=== PATIENT | male | born 1930 | race Caucasian/White ===

== ENCOUNTER 2017-07-12 15:21 | Emergency (ER) | payer OTHER ==
[~2017-07-12] VITALS: Ht 172.7 cm; Wt 87.2 kg
[2017-07-12 15:59] LABS: ADD MIUA? NO; BILIRUBIN NEGATIVE; BLOOD NEGATIVE; COLOR STRAW ((YELLOW)); GLUCOSE (STRIP) NEGATIVE; KETONES NEGATIVE; LEUKOCYTES NEGATIVE; NITRITE NEGATIVE; PROTEIN (STRIP) NEGATIVE; SPECIFIC GRAVITY 1.006 (1.000-1.030); UROBILINOGEN 0.2 MG/DL (0.2-1.0)
[2017-07-12 16:00] LABS: EOSINOPHIL (%) 0.4 % (0-5); EOSINOPHIL COUNT 0.1 K/uL (0-0.3); HEMATOCRIT 43.4 % (38.0-50.0); IMMATURE GRANULOCYTE (%) 0.8 % (0.0-0.7); IMMATURE GRANULOCYTE COUNT 0.1 K/uL; INSTRUMENT ABS NEUTROPHIL CT 8.9 K/uL; LYMPHOCYTE COUNT 3.2 K/uL (1.0-2.8); MCH 26.5 PG (29.0-34.0); MCHC 32.7 G/DL (30.0-36.0); MEAN PLAT.VOLUME 8.7 uM^3 (9.0-12.4); MONOCYTE (%) 5.5 % (3-12); MONOCYTE COUNT 0.7 K/uL (0-0.8); NEUTROPHIL (%) 68.5 % (45-76); NEUTROPHIL COUNT 8.9 K/uL (1.8-6.4); PLATELET COUNT 207 K/uL (156-360); RBC DIS.WIDTH-CV 13.9 % (11.8-14.6); RBC DIS.WIDTH-SD 40.2 % (39-53); RED BLOOD COUNT 5.36 M/uL (4.00-5.50)
[2017-07-12 16:01] LABS: UCUL ADDED? NO
[2017-07-12 16:06] LABS: PROTHROMBIN TIME 10.8 SEC (10.2-12.9)
[2017-07-12 16:09] LABS: PTT 30.1 SEC (25-37)
[2017-07-12 16:13] LABS: CHLORIDE 107 mEq/L (99-109); POTASSIUM 4.1 mEq/L (3.7-5.4); SODIUM 144 mEq/L (136-147)
[2017-07-12 16:15] LABS: GLUCOSE 59 mg/dL (70-99)
[2017-07-12 16:16] LABS: ANION GAP 14 MEQ/L (2-14)
[2017-07-12 16:17] LABS: TOTAL BILIRUBIN 0.4 mg/dL (0.0-1.0)
[2017-07-12 16:18] LABS: ALKALINE PHOSPHATASE 56 IU/L (3-129)
[2017-07-12 16:20] LABS: DIRECT BILIRUBIN 0.2 mg/dL (0.0-0.3); UREA NITROGEN (BUN) 29 mg/dL (9-23)
[2017-07-12 16:21] LABS: GFR ESTIMATE (CALCULATED) 38 mL/min/; TROP-I INTERPRETATION NEGATIVE; TROPONIN-I 0.06 ng/mL (0.0-0.30)
[2017-07-12 16:22] LABS: LIPASE 51 U/L (1.0-51.0)
[2017-07-12 16:29] LABS: POINT-OF-CARE METER ID UU14100415
[2017-07-12 16:29] LABS: POINT-OF-CARE METER ID UU14100415
[2017-07-12 17:59] LABS: POINT-OF-CARE METER ID UU14100415
[2017-07-12 19:57] LABS: POINT-OF-CARE METER ID UU14100415
[2017-07-12 20:09] VITALS: BP 186/60
== END 2017-07-12 20:16 | disposition home or self-care (01) ==
LOC: EME 15:21
PROVIDERS: Emergency Medicine
DX: E11.649 Type 2 diabetes mellitus with hypoglycemia without coma (principal); I10 Essential (primary) hypertension; Z87.891 Personal history of nicotine dependence
CPT/HCPCS: 71010; 80048; 80076; 81003; 82948; 83605; 83690; 83880; 84484; 85025; 85610; 85730; 93005; 99281; 99284; J7030

== ENCOUNTER 2017-08-23 18:54 | Emergency (ER) | payer OTHER ==
[~2017-08-23] VITALS: Ht 172.7 cm; Wt 86.2 kg
[2017-08-23 19:58] LABS: HEMATOCRIT 44.5 % (38.0-50.0); MCH 27.5 PG (29.0-34.0); MCHC 32.8 G/DL (30.0-36.0); MCV 83.8 FL (86-99); MEAN PLAT.VOLUME 11.8 uM^3 (9.0-12.4); PLATELET COUNT 58 K/uL (156-360); RBC DIS.WIDTH-SD 42.4 % (39-53); RED BLOOD COUNT 5.31 M/uL (4.00-5.50)
[2017-08-23 20:07] LABS: CHLORIDE 106 mEq/L (99-109); POTASSIUM 4.8 mEq/L (3.7-5.4); SODIUM 146 mEq/L (136-147)
[2017-08-23 20:10] LABS: GLUCOSE 124 mg/dL (70-99)
[2017-08-23 20:11] LABS: ANION GAP 12 MEQ/L (2-14)
[2017-08-23 20:12] LABS: TOTAL BILIRUBIN 0.5 mg/dL (0.0-1.0)
[2017-08-23 20:13] LABS: ALKALINE PHOSPHATASE 51 IU/L (3-129); GFR ESTIMATE (CALCULATED) 44 mL/min/
[2017-08-23 20:14] LABS: UREA NITROGEN (BUN) 29 mg/dL (9-23)
[2017-08-23 21:14] LABS: ADD MIUA? NO; BILIRUBIN NEGATIVE; BLOOD NEGATIVE; COLOR COLORLESS ((YELLOW)); GLUCOSE (STRIP) NEGATIVE; KETONES NEGATIVE; LEUKOCYTES NEGATIVE; NITRITE NEGATIVE; PROTEIN (STRIP) NEGATIVE; SPECIFIC GRAVITY 1.008 (1.000-1.030); UCUL ADDED? NO; UROBILINOGEN 0.2 MG/DL (0.2-1.0)
[2017-08-23 22:10] VITALS: BP 172/66
== END 2017-08-23 22:15 | disposition home or self-care (01) ==
LOC: EME 18:54
PROVIDERS: Emergency Medicine
DX: R41.82 Altered mental status, unspecified (principal); E11.9 Type 2 diabetes mellitus without complications; I10 Essential (primary) hypertension; Z87.891 Personal history of nicotine dependence
CPT/HCPCS: 70450; 71010; 80053; 81003; 84443; 85027; 93005; 99281; 99285; J7040

== ENCOUNTER 2017-09-10 16:02 | Emergency (ER) | payer OTHER ==
[~2017-09-10] VITALS: Ht 172.7 cm; Wt 85.3 kg
[2017-09-10 16:55] LABS: EOSINOPHIL (%) 0.4 % (0-5); HEMATOCRIT 44.5 % (38.0-50.0); IMMATURE GRANULOCYTE (%) 0.6 % (0.0-0.7); IMMATURE GRANULOCYTE COUNT 0.1 K/uL; INSTRUMENT ABS NEUTROPHIL CT 9.2 K/uL; LYMPHOCYTE COUNT 1.3 K/uL (1.0-2.8); MCH 27.5 PG (29.0-34.0); MCHC 32.8 G/DL (30.0-36.0); MCV 83.8 FL (86-99); MONOCYTE (%) 4.3 % (3-12); MONOCYTE COUNT 0.5 K/uL (0-0.8); NEUTROPHIL (%) 82.8 % (45-76); NEUTROPHIL COUNT 9.2 K/uL (1.8-6.4); RBC DIS.WIDTH-CV 13.8 % (11.8-14.6); RBC DIS.WIDTH-SD 42.2 % (39-53); RED BLOOD COUNT 5.31 M/uL (4.00-5.50); WHITE BLOOD COUNT 11.1 K/uL (4.1-10.2)
[2017-09-10 17:01] LABS: PLATELET COUNT 189 K/uL (156-360)
[2017-09-10 17:03] LABS: CHLORIDE 108 mEq/L (99-109); POTASSIUM 4.2 mEq/L (3.7-5.4); SODIUM 142 mEq/L (136-147)
[2017-09-10 17:05] LABS: GLUCOSE 66 mg/dL (70-99)
[2017-09-10 17:06] LABS: ANION GAP 8 MEQ/L (2-14)
[2017-09-10 17:09] LABS: GFR ESTIMATE (CALCULATED) 36 mL/min/; UREA NITROGEN (BUN) 31 mg/dL (9-23)
[2017-09-10 17:13] LABS: TROP-I INTERPRETATION NEGATIVE; TROPONIN-I 0.06 ng/mL (0.0-0.30)
[2017-09-10 17:27] LABS: ADD MIUA? NO; BILIRUBIN NEGATIVE; BLOOD NEGATIVE; COLOR STRAW ((YELLOW)); GLUCOSE (STRIP) 50; KETONES NEGATIVE; LEUKOCYTES NEGATIVE; NITRITE NEGATIVE; PROTEIN (STRIP) NEGATIVE; SPECIFIC GRAVITY 1.009 (1.000-1.030); UROBILINOGEN 0.2 MG/DL (0.2-1.0)
[2017-09-10 20:30] VITALS: BP 160/64
== END 2017-09-10 21:05 | disposition home or self-care (01) ==
LOC: EME 16:02
PROVIDERS: Emergency Medicine
DX: R55 Syncope and collapse (principal); E11.65 Type 2 diabetes mellitus with hyperglycemia; F03.90 Unspecified dementia, unspecified severity, without behavioral disturbance, psychotic disturbance, mood disturbance, and anxiety; Z87.891 Personal history of nicotine dependence
CPT/HCPCS: 80048; 81003; 84484; 85025; 93005; 99281; 99285; J0360

== ENCOUNTER → 2017-09-23 | Outpatient (CLI) | payer OTHER | END | disposition home or self-care (01) | LOC: EEG 12:01 | DX: R41.82 Altered mental status, unspecified (principal) | CPT/HCPCS: 95819 ==